=== PATIENT | female | born 1950 | race Hispanic/Latino ===

== ENCOUNTER 2021-11-14 20:01 | Inpatient (IN) | payer MEDICARE, OTHER ==
[2021-11-14 20:44] LABS: #Eosinphils 0.1 10x3/uL (0.0-0.5); #Monocytes 0.6 10x3/uL (0.0-1.1); #Neutrophils 6.8 10x3/uL (1.5-8.4); %Basophils 0.1 % (0.0-2.0); %Eosinophils 0.8 % (0.0-6.0); %Lymphocytes 15.4 % (18.0-47.0); %Monocytes 6.2 % (0.0-10.0); Hemoglobin 10.6 g/dL (12.0-15.5); Mean Corpuscular HGB CONC 34.4 g/dL (32.0-36.0); Mean Corpuscular Hemoglobin 30.6 pg (27.0-33.0); Platelet Count 428 10x3/uL (150-450); RBC Distribution Width 12.6 % (11.5-14.5); Red Blood Cell (RBC) Count 3.46 10x6/uL (3.90-5.03); White Blood Cell (WBC) Count 8.8 10x3/uL (3.5-10.5)
[2021-11-14 20:58] LABS: ALT (SGPT) 20 U/L (8-55); AST (SGOT) 13 U/L (5-34); Albumin 3.5 g/dL (3.4-4.8); Alkaline Phosphatase 131 U/L (40-110); Anion Gap 14 mmol/L (10-20); BUN (Urea Nitrogen) 16 mg/dL (9.8-20.1); Bilirubin, Total 0.3 mg/dL (0.2-1.2); CRP (Inflammatory) 9.13 mg/dL (= or < 0.5); Calc. Creatinine Clearance 0 mL/min (70-130); Calcium 9.5 mg/dL (7.8-10.44); Carbon Dioxide 23 mmol/L (23-31); Chloride 96 mmol/L (98-107); Estimated GFR 41; Globulin 4.3 g/dL (2.4-3.5); Glucose 411 mg/dL (83-110); Potassium 4.3 mmol/L (3.5-5.1); Protein, Total 7.8 g/dL (5.8-8.1); Sodium 129 mmol/L (136-145)
[2021-11-14] MEDS ORDERED: Cefepime 2 GM VIAL ONE (22:10)
[2021-11-14] MEDS ORDERED: Senokot S 8.6-50 MG TAB PO PRN (23:36)
[2021-11-14] MEDS ORDERED: Calcium Carbonate 500 MG ChewTAB PO PRN (23:36)
[2021-11-14] MEDS ORDERED: Ondansetron PF 4 MG/2 ML Vial IVP PRN (23:36)
[2021-11-14] MEDS ORDERED: Acetaminophen 325 MG TAB PO PRN (23:36)
[2021-11-14] MEDS ORDERED: Dextrose 50% Abboject 50 ML SYRINGE SLOW IVP PRN (23:36)
[2021-11-14] MEDS ORDERED: Dextrose 5% in Water 1,000 ML IV PRN (23:36)
[2021-11-14] MEDS ORDERED: Lactated Ringer's 1,000 ML IV SCH (23:45)
[2021-11-14] MEDS ORDERED: Sodium Chloride 0.9% 1,000 ML IV SCH (23:45)
[2021-11-15] MEDS ORDERED: Nitroglycerin 2% Ointment 1 INCH/1 GM Packet TOP SCH (00:30)
[2021-11-15 00:58] LABS: PTT 26.8 sec (22.0-33.0); Prothrombin Time 11.1 sec (9.5-12.1)
[2021-11-15] MEDS: HYDROcodone/Acetaminophen 5/325 mg Tablet PO PRN ×3 (00:59→18:26)
[2021-11-15] MEDS: HumaLOG 300 UNITS/3 ML VIAL SC PRN ×2 (01:07→11:54)
[2021-11-15 01:57] VITALS: BMI 20.7
[2021-11-15 06:06] LABS: #Eosinphils 0.1 10x3/uL (0.0-0.5); #Monocytes 0.5 10x3/uL (0.0-1.1); #Neutrophils 5.3 10x3/uL (1.5-8.4); %Basophils 0.3 % (0.0-2.0); %Eosinophils 0.9 % (0.0-6.0); %Lymphocytes 13.2 % (18.0-47.0); %Monocytes 7.8 % (0.0-10.0); %Neutrophils 77.4 % (40.0-75.0); Hemoglobin 8.9 g/dL (12.0-15.5); Mean Corpuscular Volume 90.9 fl (81.6-98.3); Mean Platelet Volume 9.8 fl (7.4-10.4); Platelet Count 382 10x3/uL (150-450); RBC Distribution Width 12.6 % (11.5-14.5); Red Blood Cell (RBC) Count 2.97 10x6/uL (3.90-5.03); White Blood Cell (WBC) Count 6.9 10x3/uL (3.5-10.5)
[2021-11-15 06:16] LABS: Anion Gap 12 mmol/L (10-20); BUN (Urea Nitrogen) 11 mg/dL (9.8-20.1); Calc. Creatinine Clearance 39 mL/min (70-130); Carbon Dioxide 25 mmol/L (23-31); Cardiac Risk 3.5 (Less than 4.5); Chloride 102 mmol/L (98-107); Cholesterol 108 mg/dl (< 200 Desired); Estimated GFR 60; Glucose 179 mg/dL (83-110); HDL Cholesterol 31 mg/dL (>60 Neg Risk); LDL Cholesterol, Calculated 58 mg/dL; Potassium 4.2 mmol/L (3.5-5.1); Sodium 135 mmol/L (136-145); Triglycerides 96 mg/dL (Less than 150)
[2021-11-15] MEDS ORDERED: Heparin 25,000 units/D5W 500 ML IVPB SCH (08:00)
[2021-11-15] MEDS ORDERED: Heparin 10,000 UNITS/ 10 ML VIAL SLOW IVP SCH (08:00)
[2021-11-15] MEDS ORDERED: Amlodipine 5 MG TAB PO SCH (09:00)
[2021-11-15] MEDS ORDERED: Famotidine 20 MG TAB PO SCH (09:00)
[2021-11-15] MEDS ORDERED: Clopidogrel Bisulfate 75 MG TAB PO SCH (09:00)
[2021-11-15] MEDS: Metoprolol Tartrate 25 MG TAB PO SCH ×2 (10:21→20:12)
[2021-11-15] MEDS: Cefepime 1 GM in Sodium Chloride 0.9% 100 ML IVPB SCH ×2 (10:21→20:12)
[2021-11-15] MEDS: metFORMIN 500 MG TAB PO SCH ×2 (10:21→17:39)
[2021-11-15 12:23] LABS: Hemoglobin A1c 12.2 % (4.0-6.0)
[2021-11-15] MEDS ORDERED: Rosuvastatin 20 MG TAB PO SCH (21:00)
[2021-11-15] MEDS ORDERED: Gabapentin 300 MG CAP PO SCH (21:00)
[2021-11-15 22:08] VITALS: BP 129/66; TEMP 98.4
[2021-11-16] MEDS ORDERED: Famotidine 20 MG TAB PO SCH (09:00)
== END 2021-11-15 21:00 | disposition short-term general hospital (02) | DRG 300 ==
LOC: CSHERS 20:01 → CSHTELE 23:36 → UNDOADMIN 11-15 00:02
PROVIDERS: ADMIT Student in an Organized Health Care Education/Training Program; ATTEND Family Medicine
DX: E11.52 Type 2 diabetes mellitus with diabetic peripheral angiopathy with gangrene (principal); E87.1 Hypo-osmolality and hyponatremia; N17.9 Acute kidney failure, unspecified; F41.9 Anxiety disorder, unspecified; E11.65 Type 2 diabetes mellitus with hyperglycemia; L03.032 Cellulitis of left toe; I70.222 Atherosclerosis of native arteries of extremities with rest pain, left leg; E11.621 Type 2 diabetes mellitus with foot ulcer; L97.529 Non-pressure chronic ulcer of other part of left foot with unspecified severity; N18.31 Chronic kidney disease, stage 3a; E11.22 Type 2 diabetes mellitus with diabetic chronic kidney disease; I12.9 Hypertensive chronic kidney disease with stage 1 through stage 4 chronic kidney disease, or unspecified chronic kidney disease; I77.1 Stricture of artery; Z88.0 Allergy status to penicillin; Z79.84 Long term (current) use of oral hypoglycemic drugs; Z79.899 Other long term (current) drug therapy
CPT/HCPCS: 36415; 36416; 80048; 80053; 80061; 83036; 84145; 85025; 85610; 85652; 85730; 86140; 87040; 93923; 96365; 96366; 96367; 97139; J0692; J1644; J1815; J3370; J3490; J7050; J7120; U0003; U0005